=== PATIENT | male | born 1965 | race Caucasian/White ===

== ENCOUNTER 2016-06-04 10:00 | Day surgery (SDC) | payer OTHER ==
[~2016-06-04 10:00] MED LIST: LACTATED RINGERS 1,000 ML IV SCH
[2016-06-04] MEDS ORDERED: IV START KIT ONE (10:37)
[2016-06-04] MEDS ORDERED: LACTATED RINGERS 1,000 ML ONE (10:37)
[2016-06-04] MEDS ORDERED: FENTANYL 100 MCG/2 ML VIAL ONE (11:10)
[2016-06-04] MEDS ORDERED: PROPOFOL 40 ML IV ONE (11:10)
--- NOTE | 2016-06-08 12:54 | SURGPATH ---
[facility] [address] [place] [id number] Patient Name: BAKARI BAKER MR#: [id number] : 1965 Gender: M Specimen #: [id number] Collected: 06/04/2016 Received: 06/05/2016 Reported: 06/08/2016 Submitting Phys: RONALDO THOMAS Copy To Phys: VIVIAN FRITZ [facility] Clinical History / Pre-Operative Diagnosis: History of colon polyps, heme + stool Specimen Source / Surgical Procedure Performed: Splenic flexure polyp Interpretation: COLON, SPLENIC FLEXURE, POLYP, POLYPECTOMY: - BENIGN MUCOSAL TAG Electronically Signed Out Arlene Oakley M.D. Gross Description: The specimen is received in formalin labeled with the patient's name and "splenic flexure polyp". The specimen consists of a single fragment of rosas soft tissue, 0.4 cm in greatest dimension. Submitted in toto in one cassette Lisandra Marie [place] Microscopic Description: A fragment of colonic mucosa shows nonspecific reactive changes including a branched crypt. No adenomatous change or hyperplastic polyp is seen. 1: [id number] K63.89
== END 2016-06-04 12:42 | disposition home or self-care (01) ==
LOC: SDC 10:00
PROVIDERS: ATTEND Internal Medicine Gastroenterology
PROC: 0DBL8ZX Excision of Transverse Colon, Via Natural or Artificial Opening Endoscopic, Diagnostic (ICD-10-PCS; principal; 2016-06-04)
DX: Z12.11 Encounter for screening for malignant neoplasm of colon (principal); D12.3 Benign neoplasm of transverse colon; K57.30 Diverticulosis of large intestine without perforation or abscess without bleeding; Z86.010 Personal history of colon polyps; E11.9 Type 2 diabetes mellitus without complications; Z79.4 Long term (current) use of insulin; I10 Essential (primary) hypertension; M79.1 Myalgia; G40.909 Epilepsy, unspecified, not intractable, without status epilepticus; Z88.0 Allergy status to penicillin; Z88.5 Allergy status to narcotic agent; Z88.1 Allergy status to other antibiotic agents; Z79.82 Long term (current) use of aspirin; Z72.0 Tobacco use
CPT/HCPCS: 45380; J3010; J7120